=== PATIENT | male | born 1960 | race Caucasian/White ===

== ENCOUNTER 2017-07-17 07:51 | Emergency (ER) | payer MEDICARE, MEDICAID ==
[2017-07-17 08:12] VITALS: TEMP 97.8
[2017-07-17] MEDS ORDERED: Atropine-Diphenoxylate 0.025-2.5 mg Tab PO STA (08:35)
[2017-07-17] MEDS ORDERED: Sodium Chloride 0.9% 1,000 ML IV ONE (08:35)
--- NOTE | 2017-07-17 08:36 | C.PDOC ---
History Of Present Illness 57-year-old male, PMHx includes Hypertension, presents to the emergency department with complaints of GI distress. Patient states he has been experiencing ongoing episodes of non-bloody/watery diarrhea for the past week. Patient states he also had an episode of abdominal pain before the diarrhea started, which has now resolved. Associated symptoms include mild nausea. Patient attributes symptoms to macaroni, that he cooked last week. Denies any vomiting, fevers, bloody stools, back pain, dizziness, incontinence, symptoms , recent travel, rashes, or any other associated symptoms. No other complaints at this time. PMD Nelly Mehta MD. Time Seen by Provider: 07/17/17 08:12 Chief Complaint (Nursing): Abdominal Pain History Per: Patient History/Exam Limitations: no limitations Onset/Duration Of Symptoms: Days Current Symptoms Are (Timing): Still Present Severity: Moderate Past Medical History Reviewed: Historical Data, Nursing Documentation, Vital Signs Vital Signs: Last Vital Signs Temp 97.8 F 07/17/17 08:00 Pulse 96 H 07/17/17 10:19 Resp 18 07/17/17 10:19 BP 123/72 07/17/17 10:19 Pulse Ox 99 07/17/17 11:00 Family History: States: No Known Family Hx - Social History Hx Alcohol Use: No Hx Substance Use: No - Immunization History Hx Tetanus Toxoid Vaccination: No Hx Influenza Vaccination: No Hx Pneumococcal Vaccination: No Review Of Systems Except As Marked, All Systems Reviewed And Found Negative. Constitutional: Negative for: Fever Cardiovascular: Negative for: Chest Pain Respiratory: Negative for: Shortness of Breath Gastrointestinal: Positive for: Nausea, Abdominal Pain (now resolved), Diarrhea. Negative for: Vomiting, Melena, Hematochezia Musculoskeletal: Negative for: Back Pain Neurological: Negative for: Weakness, Numbness, Headache, Dizziness Physical Exam - Physical Exam Appears: Non-toxic, No Acute Distress Skin: Warm, Dry, No Rash Head: Atraumatic, Normacephalic Eye(s): bilateral: Normal Inspection, PERRL Nose: Normal Oral Mucosa: Moist Lips: Normal Appearing Neck: Normal ROM Chest: Symmetrical Cardiovascular: Rhythm Regular, No Murmur Respiratory: Normal Breath Sounds, No Accessory Muscle Use Gastrointestinal/Abdominal: Bowel Sounds (Normal), Soft, No Tenderness, No Guarding, No Rebound Extremity: Normal ROM Neurological/Psych: Oriented x3, Normal Speech ED Course And Treatment - Laboratory Results Result Diagrams: 07/17/17 08:58 07/17/17 08:58 O2 Sat by Pulse Oximetry: 99 (on RA) Pulse Ox Interpretation: Normal - Radiology CXR: Viewed By Me (Preliminary read shows non-specific gas pattern. No free air, =.) - Other Rad XR Obstructive series X-Ray: Viewed By Me, Read By Radiologist Interpretation: Accession No. : [id number]. Patient Name / ID : TY JAMES / [id number]. Exam Date : 07/17/2017 08:52:12 ( Approved ). Study Comment : Sex / Age : M / 57Y. Creator : Deng Luna MD. Dictator : Deng Luna MD. Small Package And Bundle Sorter Clerk : Animal Cruelty Investigator : Deng Luna MD. Approver2 : Report Date : 07/17/2017 11:51:09. My Comment : . PROCEDURE: Radiographs of the chest and abdomen (obstructive series). HISTORY: abd pain. COMPARISON: No prior. TECHNIQUE: AP radiograph of the chest, with upright and supine radiographs of the abdomen. FINDINGS: CHEST: Lungs: Clear. Cardiovascular: Normal size heart. No pulmonary vascular congestion. Pleura: No pleural fluid. No pneumothorax. Other findings: None. ABDOMEN AND PELVIS: Bowel: Nonobstructive bowel gas pattern. Trace air-fluid level seen within large bowel the left flank and left upper quadrant abdomen. Free air: None. Bones: Unremarkable. Other findings: None. IMPRESSION: Nonobstructive bowel gas pattern appreciated. Occasional trace air-fluid levels are seen at the left flank/left quadrant abdomen. No free intrarenal gas. Medical Decision Making Medical Decision Making: Impression 57 y/o M comes in w/ diarrhea x1 week. Plan: * CMP, Lipase * CBC * X-Ray Obstructive Series * , Pepcid, IVF, Zofran * Reassess and Disposition Reassess: Lipase is elevated, but patient feels better. He will be discharged for outpatient f/u with PMD/clinic. All questions answered. Patient asked to return immediately for any new or worsening symptoms. Disposition Counseled Patient/Family Regarding: Studies Performed, Diagnosis, Need For Followup, Rx Given - Disposition Referrals: [facility] [Outside] Disposition: HOME/ ROUTINE Disposition Time: 10:47 Condition: IMPROVED Additional Instructions: follow up with medical clinic in 2 days call to make an appointment take medications as prescribed return to hospital if symptoms worsens or progress Prescriptions: Atropine/Diphenoxylate [Lonox 0.025 MG-2.5 MG] 1 tab PO QID PRN #15 tab PRN Reason: Diarrhea Instructions: Acute Diarrhea (ED) Forms: [facility] ([place]), General Discharge Instructions - Clinical Impression Clinical Impression: Abdominal discomfort, Diarrhea - Scribe Statement The provider has reviewed the documentation as recorded by the Scribe (Georgia Sykes) All medical record entries made by the Scribe were at my direction and personally dictated by me. I have reviewed the chart and agree that the record accurately reflects my personal performance of the history, physical exam, medical decision making, and the department course for this patient. I have also personally directed, reviewed, and agree with the discharge instructions and disposition.
[2017-07-17] MEDS ORDERED: Atropine-Diphenoxylate 0.025-2.5 mg Tab ONE (08:45)
[2017-07-17] MEDS ORDERED: Sodium Chloride 0.9% 1,000 ML ONE (08:45)
[2017-07-17 09:02] LABS: BASO # 0.1 K/uL (0.0-0.2); BASO % 0.8 % (0.0-2.0); EOS % 0.4 % (0.0-4.0); HEMATOCRIT 53.9 % (35.0-51.0); LYMPH # 1.5 K/uL (1.0-4.3); LYMPH % 20.3 % (20.0-40.0); MEAN CELL VOLUME 90.5 fL (80.0-94.0); MEAN CORPUSCULAR HEMOGLOBIN 30.4 pg (27.0-31.0); MEAN CORPUSCULAR HGB CONC 33.6 g/dL (33.0-37.0); MEAN PLATELET VOLUME 8.5 fL (7.2-11.7); MONO # 0.8 K/uL (0.0-0.8); NRBC % 0.1 % (0.0-2.0); RED CELL DISTRIBUTION WIDTH 15.1 % (11.5-14.5); WHITE BLOOD COUNT 7.2 K/uL (4.8-10.8)
[2017-07-17 09:49] LABS: ALB/GLOB RATIO 1.3 (1.0-2.1); ALKALINE PHOSPHATASE 45 U/L (38-126); ALT/SGPT 90 U/L (21-72); AST/SGOT 44 U/L (17-59); BILIRUBIN,TOTAL 0.5 mg/dL (0.2-1.3); BLOOD UREA NITROGEN 14 mg/dL (9-20); CALCIUM 8.4 mg/dl (8.6-10.4); CARBON DIOXIDE 22 mmol/L (22-30); CHLORIDE 106 mmol/L (98-107); GFR AFRICAN-AMERICAN > 60; GLUCOSE,RANDOM 108 mg/dL (75-110); POTASSIUM 4.1 mmol/L (3.6-5.2); SODIUM 139 mmol/L (132-148); TOTAL PROTEIN 7.2 g/dL (6.3-8.3)
[2017-07-17 10:20] VITALS: BP 123/72; PULSE 96; RESP 18
[2017-07-17 10:49] VITALS: O2SAT 99
--- NOTE | 2017-07-17 11:52 | RAD ---
PROCEDURE: Radiographs of the chest and abdomen (obstructive series) HISTORY: abd pain COMPARISON: No prior. TECHNIQUE: AP radiograph of the chest, with upright and supine radiographs of the abdomen. FINDINGS: CHEST: Lungs: Clear. Cardiovascular: Normal size heart. No pulmonary vascular congestion. Pleura: No pleural fluid. No pneumothorax. Other findings: None. ABDOMEN AND PELVIS: Bowel: Nonobstructive bowel gas pattern. Trace air-fluid level seen within large bowel the left flank and left upper quadrant abdomen. Free air: None. Bones: Unremarkable. Other findings: None. IMPRESSION: Nonobstructive bowel gas pattern appreciated. Occasional trace air-fluid levels are seen at the left flank/left quadrant abdomen. No free intrarenal gas.
== END 2017-07-17 10:59 | disposition home or self-care (01) ==
LOC: C.ER 07:51
DX: R19.7 Diarrhea, unspecified (principal); R10.9 Unspecified abdominal pain
CPT/HCPCS: 74022; 80053; 83690; 85025; 96361; 96374; 96375; 99284; J2405; J7040

== ENCOUNTER 2017-08-03 08:27 | Observation (INO) | payer MEDICARE, MEDICAID ==
--- NOTE | 2017-08-03 09:00 | C.PDOC ---
History Of Present Illness 57 y/o male with htn c/o cough x 4 days with blackish flecked sputum and chest pain when coughing. denies shortness or breath. this morning, pt reports he felt shaking chills. no sick contacts. pt also c/o palpitations. Time Seen by Provider: 08/03/17 08:46 Chief Complaint (Nursing): Chest Pain History Per: Patient History/Exam Limitations: no limitations Onset/Duration Of Symptoms: Days Current Symptoms Are (Timing): Still Present Past Medical History Reviewed: Historical Data, Nursing Documentation, Vital Signs Vital Signs: Last Vital Signs Temp 98.9 F 08/03/17 12:07 Pulse 102 H 08/03/17 14:56 Resp 18 08/03/17 14:56 BP 138/83 08/03/17 14:56 Pulse Ox 100 08/03/17 14:56 - Medical History PMH: HTN Surgical History: No Surg Hx Family History: States: No Known Family Hx - Social History Hx Alcohol Use: No Hx Substance Use: No - Immunization History Hx Tetanus Toxoid Vaccination: No Hx Influenza Vaccination: No Hx Pneumococcal Vaccination: No Review Of Systems Constitutional: Negative for: Fever, Chills Cardiovascular: Positive for: Chest Pain, Palpitations Respiratory: Positive for: Cough. Negative for: Shortness of Breath Gastrointestinal: Negative for: Nausea, Vomiting Skin: Negative for: Rash Neurological: Negative for: Weakness, Numbness Physical Exam - Physical Exam Additional Physical Exam Comments: Constitutional: No acute distress. WDWN. Head: Normocephalic. Atraumatic. Eyes: PERRL. EOMI. ENT: Moist mucous membranes. Neck: Supple. Cardiovascular: Regular rate and rhythm. Chest: No tenderness. Respiratory: Clear to auscultation bilaterally. GI: Soft. Nontender. Nondistended. Normoactive bowel sounds. No rebound. No guarding. Back: No CVA and no mid-line tenderness. Musculoskeletal: No tenderness or swelling of extremities. Skin: No rash. Neurologic: Alert, no focal deficit. ED Course And Treatment - Laboratory Results Result Diagrams: 08/03/17 10:10 08/03/17 10:10 ECG: Interpreted By Me, Viewed By Me ECG Rhythm: Sinus Rhythm Interpretation Of ECG: left anterior fascicular block Rate From EC (bpm) O2 Sat by Pulse Oximetry: 97 (RA) Pulse Ox Interpretation: Normal Medical Decision Making Medical Decision Making: pt with nsr, left anterior fasicular block, no old ekg to compare. [address] Lee, given cp, palpitations, ekg changes, will admot to tele obs Disposition Discussed With .: Erna Chavarria Doctor Will See Patient In The: Hospital - Disposition Disposition: HOSPITALIZED Disposition Time: 14:02 Condition: STABLE - Clinical Impression Clinical Impression: Chest pain, Palpitations - PA / SOCIAL SERVICES ANALYST / Resident Statement MD/DO has reviewed & agrees with the documentation as recorded. - Scribe Statement The provider has reviewed the documentation as recorded by the Scriblucila Bass All medical record entries made by the Jenniferiblucila were at my direction and personally dictated by me. I have reviewed the chart and agree that the record accurately reflects my personal performance of the history, physical exam, medical decision making, and the department course for this patient. I have also personally directed, reviewed, and agree with the discharge instructions and disposition.
[2017-08-03 10:14] LABS: BASO # 0.1 K/uL (0.0-0.2); BASO % 1.2 % (0.0-2.0); HEMATOCRIT 54.8 % (35.0-51.0); LYMPH % 20.1 % (20.0-40.0); MEAN CELL VOLUME 89.9 fL (80.0-94.0); MEAN CORPUSCULAR HEMOGLOBIN 31.8 pg (27.0-31.0); MEAN CORPUSCULAR HGB CONC 35.4 g/dL (33.0-37.0); MEAN PLATELET VOLUME 9.5 fL (7.2-11.7); MONO # 0.9 K/uL (0.0-0.8); MONO % 19.2 % (0.0-10.0); NRBC % 0.1 % (0.0-2.0); WHITE BLOOD COUNT 4.8 K/uL (4.8-10.8)
--- NOTE | 2017-08-03 10:31 | RAD ---
HISTORY: cough with pleuritic pain COMPARISON: Chest x-ray portion of the obstructive series performed 07/17/17 TECHNIQUE: Chest PA and lateral FINDINGS: LUNGS: No focal consolidation. Please note that chest x-ray has limited sensitivity for the detection of pulmonary masses. PLEURA: No significant pleural effusion identified. No definite pneumothorax . CARDIOVASCULAR: The cardiomediastinal silhouette appears within normal limits of size. OSSEOUS STRUCTURES: No acute osseous abnormality identified. VISUALIZED UPPER ABDOMEN: Unremarkable. OTHER FINDINGS: Bilateral nipple rings. IMPRESSION: No focal consolidation, significant pleural effusion, or definite pneumothorax identified.
[2017-08-03 11:55] LABS: BLOOD UREA NITROGEN 14 mg/dL (9-20); CARBON DIOXIDE 21 mmol/L (22-30); CHLORIDE 95 mmol/L (98-107); GFR AFRICAN-AMERICAN > 60; GLUCOSE,RANDOM 160 mg/dL (75-110); POTASSIUM 3.8 mmol/L (3.6-5.2); SODIUM 130 mmol/L (132-148)
[2017-08-03 11:56] LABS: ALKALINE PHOSPHATASE 53 U/L (38-126); ALT/SGPT 45 U/L (21-72); AST/SGOT 39 U/L (17-59); BILIRUBIN,TOTAL 0.9 mg/dL (0.2-1.3); CALCIUM 8.8 mg/dl (8.6-10.4); TOTAL PROTEIN 7.6 g/dL (6.3-8.3)
[2017-08-03 15:43] LABS: ALB/GLOB RATIO 1.4 (1.0-2.1)
--- NOTE | 2017-08-03 16:30 | CP.PCM.HP ---
History of Present Illness - History of Present Illness History of Present Illness: PGY1 History and Physical for Dr. Chavarria CC: Chest pain with palpitations Patient is a 57 year old male with a past medical history of hypertension, fatty liver disease and "boarderline diabetes" presents to the emergency room with a complaint of chest pain. Patient states that the started having a cough approximately 5 days ago. The cough was productive with yellowish phlegm with black specs. He states that he was started on an antibiotic 4 days ago but he is unable to recall the name. He reports worsening symptoms of chills, shaking and diaphoresis. He states that his reasoning for coming in today was that he became diaphoretic, nauseous and started to experience left sided chest pain. He describes the chest pain as gripping/squeezing with palpitations lasting approximately 2 minutes. The pain did not radiate and improved without intervention. The pain did reoccur multiple times, but he does not have it currently. Patient denies shortness of breath, vomiting, abdominal pain, diarrhea, constipation, lightheadedness, dizziness, numbness or tingling. PMD: unknown PMH: Hypertension, fatty liver disease and "boarderline diabetes" PSH: denies Social: lives at home alone, light smoker (2-5 cigs per day, "I smoke a lot of weed"), denies alcohol, just finished injecting anabolic steroids 2 months ago and previously injected IV drugs in s but denies use since then. Allergies: NKDA Present on Admission - Present on Admission Any Indicators Present on Admission: No Review of Systems - Review of Systems All systems: reviewed and no additional remarkable complaints except (as per HPI ) Past Patient History - Past Social History Smoking Status: Light Smoker < 10 Cigarettes Daily - CARDIAC Hx Hypertension: Yes - HEMATOLOGICAL/ONCOLOGICAL Other/Comment: Fatty Liver - PSYCHIATRIC Hx Substance Use: No - SURGICAL HISTORY Hx Surgeries: No - ANESTHESIA Hx Anesthesia: No Meds Allergies/Adverse Reactions: Allergies Allergy/AdvReac Type Severity Reaction Status Date / Time No Known Allergies Allergy Verified 08/03/17 08:37 Physical Exam - Constitutional Appears: Other (diaphoretic, uncomfortable) - Head Exam Head Exam: ATRAUMATIC, NORMOCEPHALIC - Eye Exam Eye Exam: EOMI, Normal appearance. absent: Scleral icterus - ENT Exam ENT Exam: Mucous Membranes Dry - Respiratory Exam Respiratory Exam: Clear to Auscultation Bilateral. absent: Accessory Muscle Use , Rales, Wheezes, Respiratory Distress - Cardiovascular Exam Cardiovascular Exam: REGULAR RHYTHM, +S1 - GI/Abdominal Exam GI & Abdominal Exam: Normal Bowel Sounds, Soft. absent: Distended, Firm, Guarding, Rigid, Tenderness - Extremities Exam Extremities exam: Positive for: pedal pulses present. Negative for: calf tenderness, pedal edema - Neurological Exam Neurological exam: Alert, CN II-XII Intact, Oriented x3 - Psychiatric Exam Psychiatric exam: Anxious (uncomfortable) - Skin Skin Exam: Diaphoretic, Warm Results - Vital Signs Recent Vital Signs: Last Vital Signs Temp 98.9 F 08/03/17 12:07 Pulse 102 H 08/03/17 14:56 Resp 18 08/03/17 14:56 BP 138/83 08/03/17 14:56 Pulse Ox 100 08/03/17 14:56 - Labs Result Diagrams: 08/03/17 10:10 08/03/17 10:10 Labs: Laboratory Results - last 24 hr 08/03/17 08/03/17 10:10 10:10 WBC 4.8 RBC 6.09 H Hgb 19.4 H Hct 54.8 H MCV 89.9 MCH 31.8 H MCHC 35.4 RDW 15.0 H Plt Count 202 MPV 9.5 Neut % (Auto) 59.5 Lymph % (Auto) 20.1 [place] % (Auto) 19.2 H Eos % (Auto) 0.0 Baso % (Auto) 1.2 Neut # 2.8 Lymph # 1.0 [place] # 0.9 H Eos # 0.0 Baso # 0.1 Sodium 130 L Potassium 3.8 Chloride 95 L Carbon Dioxide 21 L Anion Gap 18 BUN 14 Creatinine 1.3 Est GFR ( Amer) > 60 Est GFR (Non-Af Amer) 57 Random Glucose 160 H Calcium 8.8 Total Bilirubin 0.9 AST 39 ALT 45 Alkaline Phosphatase 53 Troponin I < 0.0120 Total Protein 7.6 Albumin 4.3 Globulin 3.2 Albumin/Globulin Ratio 1.4 Assessment & Plan - Assessment and Plan (Free Text) Plan: Chest Pain w/palpitations Cardio consult, Dr. Bills, help appreciated CXR 08/03 - No focal consolidation, significant pleural effusion or definite pneumothorax identified. Normal CXR. EKG - NSR 90bpm, left anterior fascicular block, no ST elevations - no old ekg; f/u repeat EKGx2 Trop <0.0120; f/u trops x2 f/u lipid panel f/u TSH/free T4 Aspirin 81mg PO daily NS @100mL/hr Cough w/chills f/u influenza swab Azithromycin 500mg PO daily influenza vaccine pneumococcal vaccine hx of Hypertension continue to monitor restarted home medications - Enalapril Maleate 10mg PO daily boardline diabetes f/u HgbA1c Prophylactic Care Lovenox 40mg SC daily Trazodone 100mg PO HS Case discussed with Dr. Aura Gamble Alber PGY1
[2017-08-03] MEDS: Sodium Chloride 0.9% 1,000 ML IV SCH (17:10)
[2017-08-03] MEDS ORDERED: guaiFENesin-Codeine 100-10mg/5ml Syrup (10ml) UD PO ONE (22:46)
[2017-08-04] MEDS: Sodium Chloride 0.9% 1,000 ML IV SCH (03:01)
[2017-08-04 08:23] VITALS: BP 146/85; PULSE 82; RESP 20; TEMP 98.7; O2SAT 97
--- NOTE | 2017-08-04 09:39 | CP.PCM.DIS ---
Provider - Provider Date of Admission: 08/03/17 14:13 Attending physician: Erna Chavarria MD Primary care physician: Dr Nelly Mehta Consults: Salsa Dance Instructor: Dr Bills Time Spent in preparation of Discharge (in minutes): 28 Hospital Course - Lab Results Lab Results: Most Recent Lab Values WBC 4.8 K/uL (4.8-10.8) 08/03/17 10:10 RBC 6.09 Mil/uL (4.40-5.90) H 08/03/17 10:10 Hgb 19.4 g/dL (12.0-18.0) H 08/03/17 10:10 Hct 54.8 % (35.0-51.0) H 08/03/17 10:10 MCV 89.9 fL (80.0-94.0) 08/03/17 10:10 MCH 31.8 pg (27.0-31.0) H 08/03/17 10:10 MCHC 35.4 g/dL (33.0-37.0) 08/03/17 10:10 RDW 15.0 % (11.5-14.5) H 08/03/17 10:10 Plt Count 202 K/uL (130-400) 08/03/17 10:10 MPV 9.5 fL (7.2-11.7) 08/03/17 10:10 Neut % (Auto) 59.5 % (50.0-75.0) 08/03/17 10:10 Lymph % (Auto) 20.1 % (20.0-40.0) 08/03/17 10:10 [place] % (Auto) 19.2 % (0.0-10.0) H 08/03/17 10:10 Eos % (Auto) 0.0 % (0.0-4.0) 08/03/17 10:10 Baso % (Auto) 1.2 % (0.0-2.0) 08/03/17 10:10 Neut # 2.8 K/uL (1.8-7.0) 08/03/17 10:10 Lymph # 1.0 K/uL (1.0-4.3) 08/03/17 10:10 [place] # 0.9 K/uL (0.0-0.8) H 08/03/17 10:10 Eos # 0.0 K/uL (0.0-0.7) 08/03/17 10:10 Baso # 0.1 K/uL (0.0-0.2) 08/03/17 10:10 Sodium 130 mmol/L (132-148) L 08/03/17 10:10 Potassium 3.8 mmol/L (3.6-5.2) 08/03/17 10:10 Chloride 95 mmol/L (98-107) L 08/03/17 10:10 Carbon Dioxide 21 mmol/L (22-30) L 08/03/17 10:10 Anion Gap 18 (10-20) 08/03/17 10:10 BUN 14 mg/dL (9-20) 08/03/17 10:10 Creatinine 1.3 mg/dL (0.8-1.5) 08/03/17 10:10 Est GFR ( Amer) > 60 08/03/17 10:10 Est GFR (Non-Af Amer) 57 08/03/17 10:10 POC Glucose (mg/dL) 99 mg/dL (65-110) 08/04/17 06:28 Random Glucose 160 mg/dL (75-110) H 08/03/17 10:10 Calcium 8.8 mg/dl (8.6-10.4) 08/03/17 10:10 Total Bilirubin 0.9 mg/dL (0.2-1.3) 08/03/17 10:10 AST 39 U/L (17-59) 08/03/17 10:10 ALT 45 U/L (21-72) 08/03/17 10:10 Alkaline Phosphatase 53 U/L (38-126) 08/03/17 10:10 Total Creatine Kinase 787 U/L (55-170) H 08/04/17 00:34 CK-MB (Mass) 3.57 ng/mL (0.0-3.38) H 08/04/17 00:34 Troponin I < 0.0120 ng/mL (0.00-0.120) 08/04/17 00:34 Total Protein 7.6 g/dL (6.3-8.3) 08/03/17 10:10 Albumin 4.3 g/dL (3.5-5.0) 08/03/17 10:10 Globulin 3.2 gm/dL (2.2-3.9) 08/03/17 10:10 Albumin/Globulin Ratio 1.4 (1.0-2.1) 08/03/17 10:10 Influenza Typ A,B (EIA) Negative for flu a/b (NEGATIVE) 08/03/17 22:45 - Hospital Course Hospital Course: PGY1 History and Physical for Dr. Chavarria CC: Chest pain with palpitations Patient is a 57 year old male with a past medical history of hypertension, fatty liver disease and "boarderline diabetes" presents to the emergency room with a complaint of chest pain. Patient states that the started having a cough approximately 5 days ago. The cough was productive with yellowish phlegm with black specs. He states that he was started on an antibiotic 4 days ago but he is unable to recall the name. He reports worsening symptoms of chills, shaking and diaphoresis. He states that his reasoning for coming in today was that he became diaphoretic, nauseous and started to experience left sided chest pain. He describes the chest pain as gripping/squeezing with palpitations lasting approximately 2 minutes. The pain did not radiate and improved without intervention. The pain did reoccur multiple times, but he does not have it currently. Patient denies shortness of breath, vomiting, abdominal pain, diarrhea, constipation, lightheadedness, dizziness, numbness or tingling. PMD: unknown PMH: Hypertension, fatty liver disease and "boarderline diabetes" PSH: denies Social: lives at home alone, light smoker (2-5 cigs per day, "I smoke a lot of weed"), denies alcohol, just finished injecting anabolic steroids 2 months ago and previously injected IV drugs in s but denies use since then. Allergies: NKDA HOSPITAL COURSE: THIS PATIENT LEFT AGAINST MEDICAL ADVICE. Mr Zarco was admitted for chest pain w/ palpitations. A Chest XRAY showed normal findings; no focal consolidation, no significant pleural effusion or definite pneumothorax. AN EKG showed normal sinus rhythm at 90 beats per minute, a left anterior fasicular block, and no ST elevations. There was not an old EKG to compare against. Troponins were drawn which were negative x3 spaced 6 hours apart. A CK-MB was negative, a follow-up CK-MB was slightly elevated at 3.57. He was given aspirin 81mg and normal saline @100ml/hr. A lipid panel,TSH/Free T4, and HgbA1C were ordered but the patient left AMA before the results were posted. Salsa Dance Instructor, Dr Bills was consulted however the patient did not want to wait for Dr Bills to evaluate him. Thus he signed out AMA morning of 08/04/17. The risks of signing out AMA without cardiology evaluation were gone over with the patient in detail. The patient was also treated for cough w/ chills. His influenza screen was negative. He was given Azithromycin 500mg PO QD and gauifenesin/codeine for the cough. He did not have an elevated WBC and he was afebrile throughout his stay. He was also given the flu vaccine and the pneumococcal vaccine. He was started on his home medication of enalapril 10mg po QD to treat his hypertension. Discharge Exam - Head Exam Head Exam: ATRAUMATIC, NORMOCEPHALIC - Additional Findings Additional findings: - Constitutional Appears: Other (diaphoretic, uncomfortable) - Head Exam Head Exam: ATRAUMATIC, NORMOCEPHALIC - Eye Exam Eye Exam: EOMI, Normal appearance. absent: Scleral icterus - ENT Exam ENT Exam: Mucous Membranes Dry - Respiratory Exam Respiratory Exam: Clear to Auscultation Bilateral. absent: Accessory Muscle Use , Rales, Wheezes, Respiratory Distress - Cardiovascular Exam Cardiovascular Exam: REGULAR RHYTHM, +S1 - GI/Abdominal Exam GI & Abdominal Exam: Normal Bowel Sounds, Soft. absent: Distended, Firm, Guarding, Rigid, Tenderness - Extremities Exam Extremities exam: Positive for: pedal pulses present. Negative for: calf tenderness, pedal edema - Neurological Exam Neurological exam: Alert, CN II-XII Intact, Oriented x3 - Psychiatric Exam Psychiatric exam: Anxious (uncomfortable) - Skin Skin Exam: Diaphoretic, Warm Discharge Plan - Follow Up Plan Condition: STABLE Disposition: AGAINST MEDICAL ADVICE Additional Instructions: Patient signed out against medical advice. Patient was told to follow-up with his PMD, Dr Nelly Mehta within 1 week. Patient was told to continue his home medications. Patient was told if symptoms return or worsen, to promptly return to the ER.
[2017-08-04] MEDS ORDERED: Pneumococcal 23-Valent Vaccine IM ONE (10:00)
[2017-08-04] MEDS ORDERED: Enoxaparin 40 mg Syringe SC SCH (10:00)
[2017-08-04] MEDS ORDERED: Influenza Vaccine 60 mcg/0.5 mL SYR (4YR UP) IM ONE (10:00)
--- NOTE | 2017-08-04 14:12 | CP.PCM.CON ---
History of Present Illness - History of Present Illness History of Present Illness: PT LEFT HOSPITAL AMA BEFORE CARDIAC EVAL Past Patient History - Past Medical History & Family History Past Medical History?: Yes - Past Social History Smoking Status: Light Smoker < 10 Cigarettes Daily - CARDIAC Hx Hypertension: Yes - HEMATOLOGICAL/ONCOLOGICAL Other/Comment: Fatty Liver - MUSCULOSKELETAL/RHEUMATOLOGICAL Hx Falls: No - PSYCHIATRIC Hx Substance Use: No - SURGICAL HISTORY Hx Surgeries: No - ANESTHESIA Hx Anesthesia: No Meds Allergies/Adverse Reactions: Allergies Allergy/AdvReac Type Severity Reaction Status Date / Time No Known Allergies Allergy Verified 08/03/17 08:37 Results - Vital Signs Recent Vital Signs: Last Vital Signs Temp 98.7 F 08/04/17 08:05 Pulse 82 08/04/17 08:05 Resp 20 08/04/17 08:05 BP 146/85 08/04/17 09:37 Pulse Ox 97 08/04/17 08:05 - Labs Result Diagrams: 08/03/17 10:10 08/03/17 10:10 Labs: Laboratory Results - last 24 hr 08/03/17 08/03/17 08/03/17 10:10 17:30 19:49 POC Glucose (mg/dL) 126 H Total Creatine Kinase 666 H CK-MB (Mass) 2.73 Troponin I < 0.0120 < 0.0120 Globulin 3.2 Albumin/Globulin Ratio 1.4 Influenza Typ A,B (EIA) 08/03/17 08/03/17 08/04/17 22:45 22:57 00:34 POC Glucose (mg/dL) 113 H Total Creatine Kinase 787 H CK-MB (Mass) 3.57 H Troponin I < 0.0120 Globulin Albumin/Globulin Ratio Influenza Typ A,B (EIA) Negative for flu a/b 08/04/17 06:28 POC Glucose (mg/dL) 99 Total Creatine Kinase CK-MB (Mass) Troponin I Globulin Albumin/Globulin Ratio Influenza Typ A,B (EIA)
== END 2017-08-04 10:30 | disposition left against medical advice (07) ==
LOC: C.ER 08:27 → C.9E 14:13 → C.6T 15:13
PROVIDERS: ADMIT Internal Medicine; ATTEND Internal Medicine
DX: R07.89 Other chest pain (principal); I10 Essential (primary) hypertension; Z23 Encounter for immunization; Z87.891 Personal history of nicotine dependence
CPT/HCPCS: 36415; 71020; 80053; 82948; 84484; 85025; 87804; 99285; G0378; J1650; J7040

== ENCOUNTER 2017-11-17 07:43 | Emergency (ER) | payer MEDICARE, MEDICAID ==
[2017-11-17 07:53] VITALS: RESP 20; BMI 31.3
[2017-11-17 08:30] LABS: BASO # 0.1 K/uL (0.0-0.2); BASO % 0.4 % (0.0-2.0); EOS % 0.2 % (0.0-4.0); HEMOGLOBIN 19.6 g/dL (12.0-18.0); LYMPH # 2.1 K/uL (1.0-4.3); LYMPH % 15.3 % (20.0-40.0); MEAN CORPUSCULAR HEMOGLOBIN 32.2 pg (27.0-31.0); MEAN CORPUSCULAR HGB CONC 34.4 g/dL (33.0-37.0); MEAN PLATELET VOLUME 8.6 fL (7.2-11.7); MONO # 1.1 K/uL (0.0-0.8); MONO % 7.8 % (0.0-10.0); NEUT # 10.3 K/uL (1.8-7.0); NEUT % 76.3 % (50.0-75.0); NRBC % 0.1 % (0.0-2.0); RBC 6.08 Mil/uL (4.40-5.90); RED CELL DISTRIBUTION WIDTH 15.3 % (11.5-14.5)
--- NOTE | 2017-11-17 08:32 | C.PDOC ---
History Of Present Illness 57 y/o M c PMHx HTN, BPH p/w rectal discomfort when defecating x 2 days. Patient states stool seems "shiny." He reports feeling like he has to defecate often. Denies camping/hiking, recent travel, history of cancer or radiation. He states he is sexually active with women. He then also states that when he ejaculates, he feels a pain "inside" for 2 minutes that goes away. He notes a history of "thick blood" but states he does not get phlebotomy because he likes to work out and he needs to "keep all his blood." He also notes that he has been on steroids for over a decade. Denies fever, dysuria, vomiting, rash. He states he went to clinic 2 weeks ago and was called today to come back in today at 3PM to go over an abnormal lab result. Time Seen by Provider: 11/17/17 07:54 Chief Complaint (Nursing): Male Genitourinary Past Medical History Vital Signs: Last Vital Signs Temp 97.4 F L 11/17/17 07:48 Pulse 110 H 11/17/17 07:48 Resp 20 11/17/17 07:48 BP 147/91 H 11/17/17 07:48 Pulse Ox 97 11/17/17 08:54 - Medical History PMH: HTN Family History: States: No Known Family Hx - Social History Hx Alcohol Use: Yes Hx Substance Use: No - Immunization History Hx Tetanus Toxoid Vaccination: No Hx Influenza Vaccination: No Hx Pneumococcal Vaccination: No Review Of Systems Except As Marked, All Systems Reviewed And Found Negative. Constitutional: Negative for: Fever Cardiovascular: Negative for: Chest Pain Physical Exam - Physical Exam Additional Physical Exam Comments: Gen: NAD, musclar Head: NC/AT Eyes: No scleral icterus ENT: MMM Neck: Supple Chest: No deformity CV: Regular rate Lungs: CTA b/l Abd: Soft, NT : No penile rash or discharge, no testicular tenderness or swelling Rectal: No erythema, vesicles, fissures, discharge Extremities: No swelling Neuro: Alert, no focal deficit ED Course And Treatment - Laboratory Results Result Diagrams: 11/17/17 08:20 11/17/17 08:20 O2 Sat by Pulse Oximetry: 97 Medical Decision Making Medical Decision Making: Symptoms consistent with proctitis or urethritis. No tenderness on abdominal exam. Will treat with antibiotics, send GC/Chlamydia. Instructed to keep appointment with clinic for today. Instructed to return to the ED for fever, vomiting, dyspnea, rash, discharge, or any other problem. Disposition - Disposition Disposition: HOME/ ROUTINE Disposition Time: 09:09 Condition: STABLE Prescriptions: Doxycycline Monohydrate [Mondoxyne Nl] 100 mg PO BID #13 capsule Instructions: Proctitis Forms: [facility] (German) - Clinical Impression Clinical Impression: Rectal pain
[2017-11-17 08:33] LABS: MEAN CELL VOLUME 93.5 fL (80.0-94.0); WHITE BLOOD COUNT 13.6 K/uL (4.8-10.8)
[2017-11-17 08:38] LABS: SQUAMOUS EPITHIAL < 1 /hpf (0-5); URINE BILIRUBIN NEGATIVE (NEGATIVE); URINE BLOOD NEGATIVE (NEGATIVE); URINE CLARITY Clear (Clear); URINE COLOR Yellow (YELLOW); URINE GLUCOSE (UA) NORMAL (Normal); URINE LEUKOCYTE ESTERASE 2+ Leu/uL (Negative); URINE PROTEIN 1+ mg/dL (NEGATIVE); URINE UROBILINOGEN NORMAL mg/dL (0.2-1.0)
[2017-11-17 08:50] LABS: ALB/GLOB RATIO 1.1 (1.0-2.1); ALBUMIN 4.5 g/dL (3.5-5.0); ALT/SGPT 61 U/L (21-72); AST/SGOT 50 U/L (17-59); BLOOD UREA NITROGEN 14 mg/dL (9-20); CALCIUM 9.6 mg/dl (8.6-10.4); GFR AFRICAN-AMERICAN > 60; GFR NON-AFRICAN AMERICAN > 60
[2017-11-17] MEDS ORDERED: cefTRIAXone (Rocephin) 250 mg Inj IM STA (09:10)
[2017-11-17 09:17] VITALS: BP 119/73; PULSE 81; TEMP 98; O2SAT 96
== END 2017-11-17 09:48 | disposition home or self-care (01) ==
LOC: C.ER 07:43
DX: K62.89 Other specified diseases of anus and rectum (principal)
CPT/HCPCS: 80053; 81001; 85025; 87491; 87591; 96372; 99284; J0696